=== PATIENT | female | born 1945 | race Caucasian/White ===

== ENCOUNTER 2019-04-09 14:26 | Emergency (ER) | payer MEDICARE, OTHER ==
[~2019-04-09] VITALS: Ht 172.7 cm; Wt 83.9 kg
[~2019-04-09 14:26] MED LIST: Albuterol2.5 MG/0.5 IH; Aspirin EC325 MG PO; Crutch1 EACH MISC; DILT120 PO; DOXY100 PO; METF500 PO; Naprosyn500 MG PO; Roxicodone5 MG PO; Ultram50 MG PO; VERA180ERB PO
== END 2019-04-09 15:48 | disposition home or self-care (01) ==
LOC: ER 14:26
DX: I83.812 Varicose veins of left lower extremity with pain (principal); Z88.2 Allergy status to sulfonamides; Z88.8 Allergy status to other drugs, medicaments and biological substances; Z79.899 Other long term (current) drug therapy
CPT/HCPCS: 93971; 99283-25

== ENCOUNTER → 2020-01-19 | Outpatient (CLI) | payer MEDICARE, OTHER ==
[2020-01-23 15:09] LABS: HPV 16 Negative (Negative); HPV 18 Negative (Negative); HPV OTHER HR TYPES Negative (Negative)
== END | disposition home or self-care (01) ==
LOC: LAB 13:06 → LAB SHORT 13:06
PROVIDERS: Obstetrics & Gynecology
DX: Z01.419 Encounter for gynecological examination (general) (routine) without abnormal findings (principal)
CPT/HCPCS: 87624; G0123

== ENCOUNTER 2020-03-06 07:29 | Day surgery (SDC) | payer MEDICARE, OTHER ==
[~2020-03-06] VITALS: Ht 170.2 cm; Wt 81.3 kg
[~2020-03-06 07:29] MED LIST changes: +CENTRUM SILVER1 EAC2 PO; +ESTER C PO
--- NOTE | 2020-03-06 09:14 | NUR ---
Ambulatory in Day Surgery History, Chart, Medications and Allergies reviewed before start of procedure. Lungs clear T/O to Auscultation. Pre-Op teaching done. Pt verbalizes understanding.
--- NOTE | 2020-03-06 10:53 | NUR ---
"DAY SURGERY | RADIOLOGY CALL RADIOLOGY STATES THAT THE MEDIPORT LOOKS GOOD PER DR. GIRALDO."
--- NOTE | 2020-03-06 11:23 | NUR ---
"DAY SURGERY RN | DISCHARGE VSS. A/O. DENIES NAUSEA AND PAIN AT THIS TIME. DISCHARGE INSRUCTIONS AND RX GIVEN TO PATIENT. SITES C/D/I. STEADY ON FEET. TO FRONT ENTRANCE IN WHEELCHAIR BY THIS RN. MEET IS RIDE HOME. NO ISSUES. TOLERATING PO FLUIDS AND FOOD."
== END 2020-03-06 22:51 | disposition home or self-care (01) ==
LOC: ORSCMMR 07:29 → ORD 09:15 → ORSCMMR 09:15
PROVIDERS: Surgery
PROC: B5131ZA Fluoroscopy of Right Jugular Veins using Low Osmolar Contrast, Guidance (ICD-10-PCS; principal; 2020-03-06 09:15)
PROC: 05HM33Z Insertion of Infusion Device into Right Internal Jugular Vein, Percutaneous Approach (ICD-10-PCS; principal; 2020-03-06 09:15)
DX: C50.212 Malignant neoplasm of upper-inner quadrant of left female breast (principal); I10 Essential (primary) hypertension; G47.33 Obstructive sleep apnea (adult) (pediatric); E11.9 Type 2 diabetes mellitus without complications; Z79.899 Other long term (current) drug therapy
CPT/HCPCS: 77001; 82947; A9270-GY; C1788; J0690; J1100; J1642; J2250; J2405; J2704; J3010; J7120

== ENCOUNTER 2020-10-04 21:23 | Inpatient (IN) | payer MEDICARE, OTHER ==
[~2020-10-04] VITALS: Ht 170.2 cm; Wt 82.0 kg
[~2020-10-04 21:23] MED LIST changes: +GLIP5ER PO; +Norco 5-325 Ta1 EACH PO
[2020-10-04 22:23] LABS: BASOPHILS PERCENT AUTO 1 % (0-2); EOSINOPHILS PERCENT AUTO 3 % (0-6); Hematocrit 41.7 % (33.0-51.0); Hemoglobin 14.5 g/dL (11.5-16.0); IMMATURE GRAN ABSOLUTE AUTO 0.13 K/mm3 (0.00-0.10); IMMATURE GRAN PERCENT AUTO 1 % (0-1); LYMPHOCYTES ABSOLUTE AUTO 1.27 K/mm3 (0.84-5.20); LYMPHOCYTES PERCENT AUTO 11 % (21-46); MONOCYTES ABSOLUTE AUTO 0.75 K/mm3 (0.16-1.47); MONOCYTES PERCENT AUTO 6 % (4-13); Mean Corpuscular HGB 32.4 pg (26.0-34.0); Mean Corpuscular HGB Conc 34.8 g/dL (31.5-36.5); Mean Corpuscular Volume 93 fL (80-100); Mean Platelet Volume 9.5 fL (9.1-12.4); NEUTROPHILS ABSOLUTE AUTO 9.26 K/mm3 (1.96-9.15); NEUTROPHILS PERCENT AUTO 78 % (41-73); Platelet Count 137 K/mm3 (150-400); RDW Coefficient Variation 15.8 % (11.7-14.2); Red Blood Cell Count 4.48 M/mm3 (3.80-5.20); White Blood Cell Count 11.81 K/mm3 (4.00-11.30)
[2020-10-04 22:40] LABS: Troponin I 0.035 ng/mL (0.000-0.040)
[2020-10-04 22:41] LABS: Alanine Aminotransfer (ALT/SGP 58 U/L (12-78); Albumin, Blood 4.1 g/dL (3.4-5.0); Albumin/Globulin Ratio 1.4 (0.8-1.8); Alk Phos 141 U/L (50-136); Anion Gap 8 mmol/L (6-16); Aspartate Aminotrans (AST/SGOT 40 U/L (12-37); Bilirubin, Total 0.9 mg/dL (0.1-1.0); Blood Urea Nitrogen 15 mg/dL (8-24); Bun/Creatinine Ratio 29.8 (12.0-20.0); CO2, Blood 27 mmol/L (21-32); Chloride, Blood 103 mmol/L (98-108); Glomerular Filtration Rate >60 (60-); Glucose, Blood 341 mg/dL (70-99); Potassium, Blood 3.7 mmol/L (3.5-5.5); Sodium, Blood 138 mmol/L (136-145); Total Protein, Blood 7.1 g/dL (6.4-8.2)
[2020-10-05] MEDS ORDERED: CAPE500 PO (01:35)
[2020-10-05 06:05] LABS: BASOPHILS ABSOLUTE AUTO 0.11 K/mm3 (0.00-0.23); BASOPHILS PERCENT AUTO 1 % (0-2); EOSINOPHILS ABSOLUTE AUTO 0.38 K/mm3 (0.00-0.68); EOSINOPHILS PERCENT AUTO 3 % (0-6); Hematocrit 38.2 % (33.0-51.0); Hemoglobin 12.9 g/dL (11.5-16.0); IMMATURE GRAN ABSOLUTE AUTO 0.15 K/mm3 (0.00-0.10); IMMATURE GRAN PERCENT AUTO 1 % (0-1); LYMPHOCYTES PERCENT AUTO 13 % (21-46); MONOCYTES ABSOLUTE AUTO 0.76 K/mm3 (0.16-1.47); MONOCYTES PERCENT AUTO 6 % (4-13); Mean Corpuscular HGB 31.7 pg (26.0-34.0); Mean Corpuscular HGB Conc 33.8 g/dL (31.5-36.5); Mean Corpuscular Volume 94 fL (80-100); NEUTROPHILS ABSOLUTE AUTO 9.03 K/mm3 (1.96-9.15); NEUTROPHILS PERCENT AUTO 75 % (41-73); Platelet Count 101 K/mm3 (150-400); RDW Coefficient Variation 15.8 % (11.7-14.2); RDW Standard Deviation 49.5 fL (35.1-46.3); Red Blood Cell Count 4.07 M/mm3 (3.80-5.20); White Blood Cell Count 12.03 K/mm3 (4.00-11.30)
[2020-10-05 06:37] LABS: Alanine Aminotransfer (ALT/SGP 52 U/L (12-78); Albumin, Blood 3.7 g/dL (3.4-5.0); Albumin/Globulin Ratio 1.4 (0.8-1.8); Alk Phos 127 U/L (50-136); Anion Gap 9 mmol/L (6-16); Aspartate Aminotrans (AST/SGOT 28 U/L (12-37); Bilirubin, Total 0.8 mg/dL (0.1-1.0); Blood Urea Nitrogen 13 mg/dL (8-24); Bun/Creatinine Ratio 26.5 (12.0-20.0); CO2, Blood 27 mmol/L (21-32); Calcium, Blood 8.6 mg/dL (8.5-10.1); Chloride, Blood 102 mmol/L (98-108); Creatinine, Blood 0.49 mg/dL (0.40-1.00); Globulin, Blood 2.6 g/dL (2.2-4.0); Glomerular Filtration Rate >60 (60-); Glucose, Blood 250 mg/dL (70-99); Potassium, Blood 3.3 mmol/L (3.5-5.5); Sodium, Blood 138 mmol/L (136-145); Total Protein, Blood 6.3 g/dL (6.4-8.2)
--- NOTE | 2020-10-05 06:42 | NUR ---
IV TO R AC LEAKING ON ADMIT. OLD DRESSING REMOVED, SITE CLEANED, AND DRESSING REPLACED. SITE W/SOME MINIMAL LEAKAGE WHICH IS NOT INCREASING WITH THE ADMINISTRATION OF FLUIDS.
--- NOTE | 2020-10-05 07:44 | NUR ---
SHIFT SUMMARY: THANG IS A&OX4. VSS, NO ACUTE EVENTS SINCE HER ARRIVAL TO THE FLOOR THIS MORNING. SHE REPORTS FOLLOWING A LOW CARB, HIGH HEALTHY FAT, AND MODERATE PROTEIN DIET. IVs X 2 PATENT, FLUIDS AND HEPARIN INFUSING. SHE REPORTS ADEQUATE PAIN CONTROL WITH 4 MG OF MORPHINE WHICH WAS ADMINISTERED IN THE ER. OXYGEN SATURATIONS MAINTAINING ON 2 L VIA NC. SHE IS TOLERATING PO INTAKE WELL. TELE IN PLACE WITH NSR. ORIENTED TO THE ROOM, CALL LIGHT IN REACH. REPORT GIVEN TO DAY SHIFT RN.
--- NOTE | 2020-10-05 08:00 | NUR ---
pt laying in bed awake a/ox3, pleasant and coopertive with care, follows commands well, denies pain or sob at this time, lungs are clear t/o, no cough noted, hrr, tele in place running sr per monitor, see strip, no edema but left leg is swollen and red up to thigh, she reports increased leg pain with movement, iv sites are clear and patent, btx4, abd flat soft nontender, voids wihthout diff, skin c/w/d, patricia, nico, call light in reach.
--- NOTE | 2020-10-05 17:36 | NUR ---
PT DOING OK, REPORTS THE PAIN IN HER LEG IS LESS THAN WHEN SHE CAME IN, HEPERIN WAS STOPPED AND STARTED ON XARELTO, NO ACUTE CHANGES THIS SHIFT. CALL LIGHT IN REACH.
--- NOTE | 2020-10-05 22:07 | NUR ---
ASSUMED CARE PT IS ALERT AND ORIENTED. PT VITALS ARE STABLE. PT UP TO THE BATHROOM WITH STANBY ASSIST. PAINFUL WITH MOVEMENT 02/15. PT IS ON 2L NC WITH NO REPORT OF SOB; SATS OF >95%.
[2020-10-06 04:06] LABS: BASOPHILS ABSOLUTE AUTO 0.09 K/mm3 (0.00-0.23); BASOPHILS PERCENT AUTO 1 % (0-2); EOSINOPHILS PERCENT AUTO 5 % (0-6); Hematocrit 36.8 % (33.0-51.0); Hemoglobin 12.3 g/dL (11.5-16.0); IMMATURE GRAN ABSOLUTE AUTO 0.19 K/mm3 (0.00-0.10); IMMATURE GRAN PERCENT AUTO 2 % (0-1); LYMPHOCYTES ABSOLUTE AUTO 1.63 K/mm3 (0.84-5.20); LYMPHOCYTES PERCENT AUTO 20 % (21-46); MONOCYTES PERCENT AUTO 10 % (4-13); Mean Corpuscular HGB 31.5 pg (26.0-34.0); Mean Corpuscular HGB Conc 33.4 g/dL (31.5-36.5); Mean Corpuscular Volume 94 fL (80-100); Mean Platelet Volume 9.3 fL (9.1-12.4); NEUTROPHILS ABSOLUTE AUTO 5.03 K/mm3 (1.96-9.15); NEUTROPHILS PERCENT AUTO 62 % (41-73); Platelet Count 136 K/mm3 (150-400); RDW Coefficient Variation 16.2 % (11.7-14.2); RDW Standard Deviation 50.9 fL (35.1-46.3); White Blood Cell Count 8.14 K/mm3 (4.00-11.30)
[2020-10-06 05:26] LABS: Albumin, Blood 3.4 g/dL (3.4-5.0); Anion Gap 7 mmol/L (6-16); Blood Urea Nitrogen 13 mg/dL (8-24); Bun/Creatinine Ratio 23.3 (12.0-20.0); CO2, Blood 28 mmol/L (21-32); Calcium, Blood 8.9 mg/dL (8.5-10.1); Chloride, Blood 102 mmol/L (98-108); Creatinine, Blood 0.56 mg/dL (0.40-1.00); Glomerular Filtration Rate >60 (60-); Glucose, Blood 225 mg/dL (70-99); Magnesium, Blood 1.9 mg/dL (1.6-2.4); Phosphorus, Blood 3.6 mg/dL (2.5-4.9); Potassium, Blood 3.5 mmol/L (3.5-5.5); Sodium, Blood 137 mmol/L (136-145)
--- NOTE | 2020-10-06 05:31 | NUR ---
SHIFT SUMMARY PT IS PLEASANT. ALERT AND ORIENTED. NO ACUTE CHANGES; VITALS HAVE REMAINED STABLE WITH SATS OF >92% AT 1L O2. REPORT PAIN WHEN AMBULATING TO THE BATHROOM AND BACK TO BED OF 02/15. SHE IS A STAND BY ASSIST TO THE BATHROOM. USES CALL LIGHT APPROPRIATLEY.
[2020-10-06] MEDS ORDERED: HYDR1TAB94 PO (12:23)
[2020-10-06] MEDS ORDERED: XARELTO20 MG PO (12:24)
[2020-10-06] MEDS ORDERED: XARELTO15 M1 PO (12:25)
--- NOTE | 2020-10-06 14:26 | NUR ---
DC'D TO HOME WITH HOME O2 FROM [facility]. VERBAL AND WRITTEN INSTRUCTIONS GIVEN WITH CLEAR UNDERSTANDING. RX GIVEN TO SPOUSE.
== END 2020-10-06 14:25 | disposition home or self-care (01) | DRG 175 ==
LOC: ER 21:23 → PCU 10-05 04:06 → ER 10-05 05:34 → PCU 10-05 05:46 → ENPENDDIS 10-06 11:54 → PCU 10-06 14:25
PROVIDERS: Internal Medicine Gastroenterology; Physician Assistant; ADMIT Internal Medicine
DX: I26.99 Other pulmonary embolism without acute cor pulmonale (principal); J96.01 Acute respiratory failure with hypoxia; I82.402 Acute embolism and thrombosis of unspecified deep veins of left lower extremity; I42.2 Other hypertrophic cardiomyopathy; E11.9 Type 2 diabetes mellitus without complications; C50.919 Malignant neoplasm of unspecified site of unspecified female breast; I10 Essential (primary) hypertension; E78.5 Hyperlipidemia, unspecified; M79.7 Fibromyalgia; Z92.21 Personal history of antineoplastic chemotherapy; Z90.10 Acquired absence of unspecified breast and nipple
CPT/HCPCS: 36415; 71260; 80053; 80069; 82947; 83735; 84484; 85025; 85730; 93005; 93010; 93971; 94761; 96374; 96376; 99285-25; A9270; J1644; J2270; J7030; Q9967

== ENCOUNTER 2021-11-12 07:44 | Day surgery (SDC) | payer MEDICARE, OTHER ==
[~2021-11-12] VITALS: Ht 172.7 cm; Wt 82.5 kg
[~2021-11-12 07:44] MED LIST changes: +CAPE500 PO; +HYDR1TAB94 PO; +XARELTO15 M1 PO; +XARELTO20 MG PO
--- NOTE | 2021-11-12 08:24 | NUR ---
11/12/21 0823 SAI RECINOS TETRACAINE DROP INSTILLED AT 0822 PLEDGETT INSERTED AT 0824
== END 2021-11-12 09:46 | disposition home or self-care (01) ==
LOC: ORSCSDS 07:44
PROVIDERS: Ophthalmology
PROC: 08RJ3JZ Replacement of Right Lens with Synthetic Substitute, Percutaneous Approach (ICD-10-PCS; principal; 2021-11-12 09:00)
DX: H25.13 Age-related nuclear cataract, bilateral (principal); I42.2 Other hypertrophic cardiomyopathy; I10 Essential (primary) hypertension; J45.909 Unspecified asthma, uncomplicated; K21.9 Gastro-esophageal reflux disease without esophagitis; E11.9 Type 2 diabetes mellitus without complications; Z79.899 Other long term (current) drug therapy
CPT/HCPCS: 82947; J2001; J2250; J3010; J3301; J7040; V2632

== ENCOUNTER 2021-12-03 06:42 | Day surgery (SDC) | payer MEDICARE, OTHER ==
[~2021-12-03] VITALS: Ht 172.7 cm; Wt 82.7 kg
--- NOTE | 2021-12-03 09:00 | NUR ---
12/03/21 0900 DRE DURÁN STATES OS IS SCRATCHY
== END 2021-12-03 08:45 | disposition home or self-care (01) ==
LOC: ORSCSDS 06:42
PROVIDERS: Ophthalmology
PROC: 08RK3JZ Replacement of Left Lens with Synthetic Substitute, Percutaneous Approach (ICD-10-PCS; principal; 2021-12-03 08:00)
DX: H25.12 Age-related nuclear cataract, left eye (principal); I10 Essential (primary) hypertension; J45.909 Unspecified asthma, uncomplicated; E11.9 Type 2 diabetes mellitus without complications; Z85.3 Personal history of malignant neoplasm of breast; Z79.899 Other long term (current) drug therapy
CPT/HCPCS: 82947; J2001; J2250; J3010; J3301; J7040; V2632

== ENCOUNTER 2022-08-17 21:41 | Inpatient (IN) | payer MEDICARE, OTHER ==
[~2022-08-17] VITALS: Ht 172.7 cm; Wt 80.7 kg
[2022-08-17 22:49] LABS: BASOPHILS ABSOLUTE AUTO 0.08 K/mm3 (0.00-0.23); BASOPHILS PERCENT AUTO 1 % (0-2); EOSINOPHILS ABSOLUTE AUTO 0.07 K/mm3 (0.00-0.68); EOSINOPHILS PERCENT AUTO 0 % (0-6); Hematocrit 41.9 % (33.0-51.0); Hemoglobin 14.2 g/dL (11.5-16.0); IMMATURE GRAN ABSOLUTE AUTO 0.08 K/mm3 (0.00-0.10); IMMATURE GRAN PERCENT AUTO 1 % (0-1); LYMPHOCYTES PERCENT AUTO 6 % (21-46); MONOCYTES ABSOLUTE AUTO 0.74 K/mm3 (0.16-1.47); MONOCYTES PERCENT AUTO 5 % (4-13); Mean Corpuscular HGB 31.3 pg (26.0-34.0); Mean Corpuscular HGB Conc 33.9 g/dL (31.5-36.5); Mean Corpuscular Volume 93 fL (80-100); Mean Platelet Volume 9.5 fL (9.1-12.4); NEUTROPHILS ABSOLUTE AUTO 13.86 K/mm3 (1.96-9.15); NEUTROPHILS PERCENT AUTO 88 % (41-73); Platelet Count 260 K/mm3 (150-400); RDW Standard Deviation 44.1 fL (35.1-46.3); Red Blood Cell Count 4.53 M/mm3 (3.80-5.20); White Blood Cell Count 15.83 K/mm3 (4.00-11.30)
[2022-08-17 23:08] LABS: Influenza A, PCR NEGATIVE (NEGATIVE); Influenza B, PCR NEGATIVE (NEGATIVE); SARS-Cov-2 (COVID-19) PCR, MMC NEGATIVE (NEGATIVE)
[2022-08-17 23:10] LABS: Albumin, Blood 3.6 g/dL (3.4-5.0); Albumin/Globulin Ratio 1.1 (0.8-1.8); Bun/Creatinine Ratio 16.7 (12.0-20.0); Calcium, Blood 8.7 mg/dL (8.5-10.1); Creatinine, Blood 0.54 mg/dL (0.40-1.00); Globulin, Blood 3.3 g/dL (2.2-4.0); Potassium, Blood 3.3 mmol/L (3.5-5.5); Total Protein, Blood 6.9 g/dL (6.4-8.2)
[2022-08-17 23:49] LABS: Resp Syncytial Virus, PCR POSITIVE (NEGATIVE)
--- NOTE | 2022-08-18 06:32 | NUR ---
TRANSFER NOTE/SHIFT SUMMARY ASSUMED CARE OF THE PT AT 0450 AFTER REPORT FROM MIRELLA JIMENES RN. PT IS ALERT AND ORIENTED X4, COOPERATIVE. STOOD TO TRANSFER TO BED. PT CURRENTLY ON 2L BY NC AND SATTING >92% THOUGH LUNG SOUNDS ARE WHEEZY. SHE REPORTS IMPROVEMENT IN WORK OF BREATHING. PT GIVEN PO POTASSIUM AND IV MAGNESIUM. 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 PT IS STEADY ON HER FEET AND REQUIRES MINIMAL ASSISTANCE. CALL LIGHT IN REACH. BED IN LOW POSITION.
[2022-08-18 07:10] LABS: BASOPHILS ABSOLUTE AUTO 0.02 K/mm3 (0.00-0.23); BASOPHILS PERCENT AUTO 0 % (0-2); EOSINOPHILS PERCENT AUTO 0 % (0-6); Hematocrit 38.7 % (33.0-51.0); Hemoglobin 12.9 g/dL (11.5-16.0); IMMATURE GRAN ABSOLUTE AUTO 0.07 K/mm3 (0.00-0.10); IMMATURE GRAN PERCENT AUTO 1 % (0-1); LYMPHOCYTES ABSOLUTE AUTO 0.49 K/mm3 (0.84-5.20); LYMPHOCYTES PERCENT AUTO 4 % (21-46); MONOCYTES ABSOLUTE AUTO 0.07 K/mm3 (0.16-1.47); MONOCYTES PERCENT AUTO 1 % (4-13); Mean Corpuscular HGB 31.3 pg (26.0-34.0); Mean Corpuscular HGB Conc 33.3 g/dL (31.5-36.5); Mean Corpuscular Volume 94 fL (80-100); Mean Platelet Volume 9.8 fL (9.1-12.4); NEUTROPHILS ABSOLUTE AUTO 11.85 K/mm3 (1.96-9.15); NEUTROPHILS PERCENT AUTO 95 % (41-73); Platelet Count 243 K/mm3 (150-400); RDW Coefficient Variation 13.2 % (11.7-14.2); RDW Standard Deviation 45.4 fL (35.1-46.3); Red Blood Cell Count 4.12 M/mm3 (3.80-5.20)
[2022-08-18 08:29] LABS: Bun/Creatinine Ratio 19.1 (12.0-20.0); Calcium, Blood 9.4 mg/dL (8.5-10.1); Creatinine, Blood 0.58 mg/dL (0.40-1.00); Potassium, Blood 3.9 mmol/L (3.5-5.5)
[2022-08-18 10:55] LABS: Glucose, Blood 646 mg/dL (70-99)
[2022-08-18 14:49] LABS: Glucose, Blood 540 mg/dL (70-99)
--- NOTE | 2022-08-18 17:09 | NUR ---
ASSUMED CARE OF PT AT 0700 THIS MORNING. FSBS HAVE BEEN HIGH 646 TODAY. CHECKING FSBS Q 2 HRS AND TREATING WITH HIGH SLIDING SCALE INSULIN PER DR GRAHAM'S ORDERS. FSBS HAVE COME DOWN, LAST WAS 389. DR GRAHAM NOTIFIED OF PT'S ELEVATED BLOOD PRESSURES WELL. SEE DOCUMENTED VS AND ASSESSMENT. PT STATES SHE FEELS HER BREATHING IS BETTER TODAY, O2 WEANED DOWN TO 1L WHILE SLEEPING, PT GIVEN I.S. AND EDUCATED ON HOW TO USE. PT ALERT AND ORIENTED, ABLE TO AMBULATE INDEPENDENTLY, USES CALL LIGHT FOR NEEDS. WILL CONTINUE TO MONITOR AND GIVE REPORT TO NOC SHIFT RN.
--- NOTE | 2022-08-19 03:38 | NUR ---
SHIFT SUMMARY NO OVERNIGHT EVENTS SINCE TRANSFER FROM PCU AT 2029. BLOOD SUGAR TRENDING DOWN, NOW IN THE 200'S, NOW Q 4 HOUR CHECK. PT REPORTS MILD SOB AND COUGH, REMAINS ON ROOM AIR. AMBULATING INDEPENDENTLY. DENIES ANY S/S OF DISTRESS. PT ORIENTED X4, ABLE TO MAKE NEEDS KNOWN.
[2022-08-19 06:01] LABS: Albumin, Blood 3.2 g/dL (3.4-5.0); Anion Gap 7 mmol/L (6-16); Blood Urea Nitrogen 26 mg/dL (8-24); Bun/Creatinine Ratio 40.2 (12.0-20.0); CO2, Blood 28 mmol/L (21-32); Calcium, Blood 8.7 mg/dL (8.5-10.1); Chloride, Blood 103 mmol/L (98-108); Creatinine, Blood 0.65 mg/dL (0.40-1.00); Glomerular Filtration Rate 92 (60-); Glucose, Blood 279 mg/dL (70-99); Magnesium, Blood 2.5 mg/dL (1.6-2.4); Phosphorus, Blood 2.8 mg/dL (2.5-4.9); Potassium, Blood 4.2 mmol/L (3.5-5.5); Sodium, Blood 138 mmol/L (136-145)
[2022-08-19 06:15] LABS: BASOPHILS ABSOLUTE AUTO 0.02 K/mm3 (0.00-0.23); BASOPHILS PERCENT AUTO 0 % (0-2); EOSINOPHILS ABSOLUTE AUTO 0.01 K/mm3 (0.00-0.68); EOSINOPHILS PERCENT AUTO 0 % (0-6); Hematocrit 36.2 % (33.0-51.0); Hemoglobin 11.8 g/dL (11.5-16.0); IMMATURE GRAN ABSOLUTE AUTO 0.16 K/mm3 (0.00-0.10); IMMATURE GRAN PERCENT AUTO 1 % (0-1); LYMPHOCYTES PERCENT AUTO 7 % (21-46); MONOCYTES ABSOLUTE AUTO 0.91 K/mm3 (0.16-1.47); MONOCYTES PERCENT AUTO 5 % (4-13); Mean Corpuscular HGB 30.6 pg (26.0-34.0); Mean Corpuscular HGB Conc 32.6 g/dL (31.5-36.5); Mean Corpuscular Volume 94 fL (80-100); NEUTROPHILS ABSOLUTE AUTO 17.74 K/mm3 (1.96-9.15); NEUTROPHILS PERCENT AUTO 88 % (41-73); Platelet Count 253 K/mm3 (150-400); RDW Coefficient Variation 13.5 % (11.7-14.2); RDW Standard Deviation 46.3 fL (35.1-46.3); Red Blood Cell Count 3.86 M/mm3 (3.80-5.20); White Blood Cell Count 20.14 K/mm3 (4.00-11.30)
[2022-08-19] MEDS ORDERED: AZIT250 PO (13:38)
[2022-08-19] MEDS ORDERED: GUAIFENESIN ER600 MG PO (13:39)
[2022-08-19] MEDS ORDERED: PRED20 PO (13:40)
[2022-08-19] MEDS ORDERED: INSULANPEN SC (13:40)
[2022-08-19] MEDS ORDERED: VISBIOME 112.51 EACH PO (13:41)
[2022-08-19] MEDS ORDERED: AMOCLA875 PO (13:42)
--- NOTE | 2022-08-19 13:52 | NUR ---
DISCHARGE NOTE- PT WAS GIVEN VERBAL AND WRITTEN DISCHARGE INSTRUCTIONS AND ACKNOWLEDGED UNDERSTANDING OF THEM. IV DC'D PRIOR TO EDUCATION. PHARMACIST WENT OVER CHARLIE MEDICATIONS WELL. PT HAS NO FURTHER QUESTIONS AT THIS ITME. INSTRUCTED THE PT TO CALL WHEN HER SPOUSE ARRIVES AND TRUCK CLEANER WILL ESCORT HER OUT VIA WC. NO CURRENT S&S OF DISTRESS.
--- NOTE | 2022-08-19 14:57 | NUR ---
`PT DISCHARGED THE PT VERBALIZED UNDERSTANDING OF THE DC ORDERS GIVEN BY MACHINE TOOL DRESSER CHRISTINA VALDEZ. PTS PRESCRIPTIONS FAXED TO PHARMACY OF HER CHOICE. THE PT WAS TRANSFERED VIA WHEELCHAIR TO THE FRONT TO MEET HER ACCOMPANIED BY THE YARD LABORER
== END 2022-08-19 14:00 | disposition home or self-care (01) | DRG 871 ==
LOC: ER 21:41 → PCU 08-18 01:54 → MEDS 08-18 20:26
PROVIDERS: Emergency Medicine; Family Medicine; Student in an Organized Health Care Education/Training Program; ADMIT Family Medicine
DX: A41.89 Other specified sepsis (principal); J12.1 Respiratory syncytial virus pneumonia; J96.01 Acute respiratory failure with hypoxia; J15.9 Unspecified bacterial pneumonia; I42.2 Other hypertrophic cardiomyopathy; J45.901 Unspecified asthma with (acute) exacerbation; Z20.822 Contact with and (suspected) exposure to COVID-19; I10 Essential (primary) hypertension; K21.9 Gastro-esophageal reflux disease without esophagitis; K76.0 Fatty (change of) liver, not elsewhere classified; E87.6 Hypokalemia; E11.65 Type 2 diabetes mellitus with hyperglycemia; E78.5 Hyperlipidemia, unspecified; I44.7 Left bundle-branch block, unspecified; M43.10 Spondylolisthesis, site unspecified; G47.33 Obstructive sleep apnea (adult) (pediatric); Z96.652 Presence of left artificial knee joint; Z88.2 Allergy status to sulfonamides; Z88.8 Allergy status to other drugs, medicaments and biological substances; Z85.3 Personal history of malignant neoplasm of breast; Z98.890 Other specified postprocedural states; Z86.711 Personal history of pulmonary embolism; Z79.899 Other long term (current) drug therapy
CPT/HCPCS: 0241U; 36415; 71045; 80048; 80053; 80069; 82947; 83605; 83735; 83880; 84145; 84484; 85025; 93005; 93010; 93306; 94640; 94644; 94664; 94760; 94762; A9270; J0456; J0696; J1650; J1815; J1940; J2930; J3475; J7050; J7512

== ENCOUNTER 2023-06-14 11:16 | Inpatient (IN) | payer MEDICARE, OTHER ==
[~2023-06-14] VITALS: Ht 167.6 cm; Wt 79.4 kg
[~2023-06-14 11:16] MED LIST changes: +AMOCLA875 PO; +AZIT250 PO; +FURO20 PO; +GUAIFENESIN ER600 MG PO; +INSULANPEN SC; +PRED20 PO; +VISBIOME 112.51 EACH PO
[2023-06-14 12:13] LABS: BASOPHILS PERCENT AUTO 1 % (0-2); EOSINOPHILS ABSOLUTE AUTO 0.19 K/mm3 (0.00-0.68); EOSINOPHILS PERCENT AUTO 2 % (0-6); Hematocrit 42.9 % (33.0-51.0); Hemoglobin 14.3 g/dL (11.5-16.0); IMMATURE GRAN ABSOLUTE AUTO 0.07 K/mm3 (0.00-0.10); IMMATURE GRAN PERCENT AUTO 1 % (0-1); LYMPHOCYTES ABSOLUTE AUTO 1.54 K/mm3 (0.84-5.20); LYMPHOCYTES PERCENT AUTO 13 % (21-46); MONOCYTES ABSOLUTE AUTO 0.75 K/mm3 (0.16-1.47); MONOCYTES PERCENT AUTO 6 % (4-13); Mean Corpuscular HGB 31.2 pg (26.0-34.0); Mean Corpuscular HGB Conc 33.3 g/dL (31.5-36.5); Mean Corpuscular Volume 94 fL (80-100); NEUTROPHILS ABSOLUTE AUTO 9.07 K/mm3 (1.96-9.15); NEUTROPHILS PERCENT AUTO 77 % (41-73); Platelet Count 224 K/mm3 (150-400); RDW Coefficient Variation 12.7 % (11.7-14.2); RDW Standard Deviation 43.6 fL (35.1-46.3); Red Blood Cell Count 4.59 M/mm3 (3.80-5.20); White Blood Cell Count 11.72 K/mm3 (4.00-11.30)
[2023-06-14 12:34] LABS: Albumin, Blood 3.9 g/dL (3.4-5.0); Albumin/Globulin Ratio 1.2 (0.8-1.8); Bilirubin, Total 0.4 mg/dL (0.1-1.0); Bun/Creatinine Ratio 17.6 (12.0-20.0); Calcium, Blood 9.3 mg/dL (8.5-10.1); Creatinine, Blood 0.8 mg/dL (0.40-1.00); Globulin, Blood 3.2 g/dL (2.2-4.0); Potassium, Blood 4.3 mmol/L (3.5-5.5); Total Protein, Blood 7.1 g/dL (6.4-8.2)
[2023-06-14 17:17] VITALS: BP 148/60
--- NOTE | 2023-06-14 17:24 | NUR ---
admit REPORT RECEIVD FROM ER. PT ARRIVED VIA GURNEY ACCOMPANIED BY STAFF. PT ALERT AND ABLE TO MAKE NEEDS KNOWN. CONTINUE POC.
[2023-06-14 19:31] VITALS: BP 148/70
[2023-06-15 03:16] VITALS: BP 166/69
[2023-06-15 06:44] LABS: BASOPHILS ABSOLUTE AUTO 0.06 K/mm3 (0.00-0.23); BASOPHILS PERCENT AUTO 1 % (0-2); EOSINOPHILS ABSOLUTE AUTO 0.21 K/mm3 (0.00-0.68); EOSINOPHILS PERCENT AUTO 3 % (0-6); Hematocrit 41.7 % (33.0-51.0); Hemoglobin 13.8 g/dL (11.5-16.0); IMMATURE GRAN ABSOLUTE AUTO 0.04 K/mm3 (0.00-0.10); IMMATURE GRAN PERCENT AUTO 1 % (0-1); LYMPHOCYTES PERCENT AUTO 23 % (21-46); MONOCYTES ABSOLUTE AUTO 0.47 K/mm3 (0.16-1.47); MONOCYTES PERCENT AUTO 7 % (4-13); Mean Corpuscular HGB 30.9 pg (26.0-34.0); Mean Corpuscular HGB Conc 33.1 g/dL (31.5-36.5); Mean Corpuscular Volume 94 fL (80-100); Mean Platelet Volume 9.8 fL (9.1-12.4); NEUTROPHILS ABSOLUTE AUTO 4.52 K/mm3 (1.96-9.15); NEUTROPHILS PERCENT AUTO 66 % (41-73); Platelet Count 211 K/mm3 (150-400); RDW Coefficient Variation 12.8 % (11.7-14.2); Red Blood Cell Count 4.46 M/mm3 (3.80-5.20)
[2023-06-15 07:19] VITALS: BP 163/73
[2023-06-15 07:22] LABS: Alanine Aminotransfer (ALT/SGP 33 U/L (12-78); Albumin, Blood 3.6 g/dL (3.4-5.0); Albumin/Globulin Ratio 1.2 (0.8-1.8); Alk Phos 82 U/L (50-136); Anion Gap 5 mmol/L (6-16); Aspartate Aminotrans (AST/SGOT 20 U/L (12-37); Bilirubin, Total 0.5 mg/dL (0.1-1.0); Blood Urea Nitrogen 13 mg/dL (8-24); CHOL/HDL RATIO 6.7; CO2, Blood 31 mmol/L (21-32); Calcium, Blood 8.9 mg/dL (8.5-10.1); Chloride, Blood 108 mmol/L (98-108); Cholesterol 249 mg/dL (50-200); Creatinine, Blood 0.72 mg/dL (0.40-1.00); Globulin, Blood 2.9 g/dL (2.2-4.0); Glomerular Filtration Rate 87 (60-); Glucose, Blood 173 mg/dL (70-99); HDL Cholesterol 37 mg/dL (>39); LDL/HDL RATIO 4.2; Low Density Lipoprotein Chol 155 mg/dL (0-110); Potassium, Blood 3.5 mmol/L (3.5-5.5); Sodium, Blood 144 mmol/L (136-145); Total Protein, Blood 6.5 g/dL (6.4-8.2); Triglycerides 285 mg/dL (30-160); Very Low Density Lipoprot Chol 57 mg/dL (6-32)
[2023-06-15 15:29] VITALS: BP 145/62
--- NOTE | 2023-06-15 16:34 | NUR ---
NOTE PT ALERT, OREINTED. SPEACH CONTINUES TO BE THICK. SHE IS TALKING LESS BUT MORE DELIBERATLEY. SHEIS HAVING WORD FINDING DIFFICULTIES AT TIMES. FAMILY AT BEDISE. SHE IS AGREEABLE TBE UP FOR MEALS IN THE CHAIR AT BEDSIDE. EATING WELL. NO COUGHING OR CLEARING HER THROAT NOTICED, EATING IS UNDER SUPERVISION. TAKES CUES FOR SAFETY WELL. DENIED PAIN OR DIZZINEAA. AMBULATING INTO BATHROOM WITH SBA FWW. RIGHT LEG WILL BUCKLE IF SHE STANDS FOR LONG. HOB 30 DEGREES FOR ASPIRATION PRECAUTIONS. BED LOW LOCKED WITH BED ALARM ON FOR FALL SAFETY. CARE ON GOING.
[2023-06-15 19:19] VITALS: BP 141/68
[2023-06-16 02:47] VITALS: BP 136/59
--- NOTE | 2023-06-16 05:28 | NUR ---
SHIFT SUMMARY PT IS A&O4, UP WITH ONE TO THE BR, RA, VSS, SPEECH STILL MILDLY APHASIC ALTHOUGH APPEARS TO BE DOING BETTER, MILD RIGHT SIDED WEAKNESS WITH FACIAL DROOP, NO COMPLAINTS OF PAIN OR DISCOMFORT OVERNIGHT, NO ACUTE EVENTS, CONTINUE POC
[2023-06-16 07:17] VITALS: BP 148/66
[2023-06-16 07:34] LABS: BASOPHILS ABSOLUTE AUTO 0.05 K/mm3 (0.00-0.23); BASOPHILS PERCENT AUTO 1 % (0-2); EOSINOPHILS PERCENT AUTO 3 % (0-6); Hematocrit 39.6 % (33.0-51.0); Hemoglobin 13.1 g/dL (11.5-16.0); IMMATURE GRAN ABSOLUTE AUTO 0.03 K/mm3 (0.00-0.10); IMMATURE GRAN PERCENT AUTO 0 % (0-1); LYMPHOCYTES ABSOLUTE AUTO 1.48 K/mm3 (0.84-5.20); LYMPHOCYTES PERCENT AUTO 22 % (21-46); MONOCYTES ABSOLUTE AUTO 0.51 K/mm3 (0.16-1.47); MONOCYTES PERCENT AUTO 8 % (4-13); Mean Corpuscular HGB 30.6 pg (26.0-34.0); Mean Corpuscular HGB Conc 33.1 g/dL (31.5-36.5); Mean Corpuscular Volume 93 fL (80-100); Mean Platelet Volume 9.6 fL (9.1-12.4); NEUTROPHILS PERCENT AUTO 66 % (41-73); Platelet Count 197 K/mm3 (150-400); RDW Coefficient Variation 12.7 % (11.7-14.2); RDW Standard Deviation 43.3 fL (35.1-46.3); Red Blood Cell Count 4.28 M/mm3 (3.80-5.20); White Blood Cell Count 6.67 K/mm3 (4.00-11.30)
[2023-06-16 08:00] LABS: Bun/Creatinine Ratio 16.7 (12.0-20.0); Calcium, Blood 8.9 mg/dL (8.5-10.1); Creatinine, Blood 0.72 mg/dL (0.40-1.00); Potassium, Blood 3.6 mmol/L (3.5-5.5)
[2023-06-16 15:18] VITALS: BP 134/63
--- NOTE | 2023-06-16 16:45 | NUR ---
SHIFT SUMMARY A&O X 4, VSS. IS PLEASANT & COOPERATIVE WITH ALL CARE. USES A WALKER FOR RESTROOM USE WITH STDBY ASSIST. SPEECH HAS CLEARED UP. FACIAL DROOP IS GONE. THERE IS MINIMAL R SIDED WEAKNESS OF EXTREMITIES. PT HAS PARTICIPATED WITH ALL THERAPIES, OT, PT & ST. BARIUM SWALLOW STUDY DONE. REPORT ON CHART. PLAN IS LIKELY HOME WITH OUT PT REHAB. PT HAS GOOD FAMILY SUPPORT.
[2023-06-16 19:09] VITALS: BP 142/64
[2023-06-17 02:36] VITALS: BP 148/62
--- NOTE | 2023-06-17 05:44 | NUR ---
UNEVENTFUL EVENING PT A/O VSS, NEURO INTACT WITH SMALL FACIAL DROOP. PT AMBULATORY WITH MINIMAL ASSIST, SHOWS NO SIGN OF WEAKNESS TO EXTREMITIES CALLS APPROPRIATLY, CALL LIGHT WITH IN REACH AND BED ALARM ACTIVE.
[2023-06-17 07:08] VITALS: BP 146/63
[2023-06-17 10:31] LABS: BASOPHILS ABSOLUTE AUTO 0.08 K/mm3 (0.00-0.23); BASOPHILS PERCENT AUTO 1 % (0-2); EOSINOPHILS ABSOLUTE AUTO 0.25 K/mm3 (0.00-0.68); EOSINOPHILS PERCENT AUTO 3 % (0-6); Hematocrit 42.7 % (33.0-51.0); Hemoglobin 14.3 g/dL (11.5-16.0); IMMATURE GRAN ABSOLUTE AUTO 0.03 K/mm3 (0.00-0.10); IMMATURE GRAN PERCENT AUTO 0 % (0-1); LYMPHOCYTES ABSOLUTE AUTO 1.51 K/mm3 (0.84-5.20); LYMPHOCYTES PERCENT AUTO 20 % (21-46); MONOCYTES ABSOLUTE AUTO 0.45 K/mm3 (0.16-1.47); MONOCYTES PERCENT AUTO 6 % (4-13); Mean Corpuscular HGB 31.3 pg (26.0-34.0); Mean Corpuscular HGB Conc 33.5 g/dL (31.5-36.5); Mean Corpuscular Volume 93 fL (80-100); NEUTROPHILS ABSOLUTE AUTO 5.35 K/mm3 (1.96-9.15); NEUTROPHILS PERCENT AUTO 70 % (41-73); Platelet Count 252 K/mm3 (150-400); RDW Coefficient Variation 12.6 % (11.7-14.2); RDW Standard Deviation 43.1 fL (35.1-46.3); Red Blood Cell Count 4.57 M/mm3 (3.80-5.20); White Blood Cell Count 7.67 K/mm3 (4.00-11.30)
[2023-06-17 10:52] LABS: Bun/Creatinine Ratio 14.2 (12.0-20.0); Calcium, Blood 9.1 mg/dL (8.5-10.1); Creatinine, Blood 0.77 mg/dL (0.40-1.00)
[2023-06-17] MEDS ORDERED: ASPI81CH PO (12:29)
[2023-06-17] MEDS ORDERED: ATOR40TA PO (12:30)
--- NOTE | 2023-06-17 14:49 | NUR ---
PATIENT DISCHARGED TO HOME. WILL FOLLOW UP WITH [facility] PROVIDER ON 15 AT11:40. PAITENT AND SPOUSE VERBALIZED UNDERSTANDING.
== END 2023-06-17 12:45 | disposition home or self-care (01) | DRG 65 ==
LOC: ER 11:16 → ERHOLD 15:02 → MEDS 17:04
PROVIDERS: Physician Assistant; ADMIT Internal Medicine
DX: I63.9 Cerebral infarction, unspecified (principal); E87.1 Hypo-osmolality and hyponatremia; I42.2 Other hypertrophic cardiomyopathy; G81.91 Hemiplegia, unspecified affecting right dominant side; I50.32 Chronic diastolic (congestive) heart failure; E11.65 Type 2 diabetes mellitus with hyperglycemia; I11.0 Hypertensive heart disease with heart failure; G47.30 Sleep apnea, unspecified; J45.909 Unspecified asthma, uncomplicated; R29.810 Facial weakness; Z79.4 Long term (current) use of insulin; Z79.899 Other long term (current) drug therapy; Z88.2 Allergy status to sulfonamides; Z88.8 Allergy status to other drugs, medicaments and biological substances; K21.9 Gastro-esophageal reflux disease without esophagitis; M17.9 Osteoarthritis of knee, unspecified; M43.10 Spondylolisthesis, site unspecified; K76.0 Fatty (change of) liver, not elsewhere classified; Z90.89 Acquired absence of other organs; Z90.49 Acquired absence of other specified parts of digestive tract; Z98.890 Other specified postprocedural states; Z96.652 Presence of left artificial knee joint; Z86.711 Personal history of pulmonary embolism; Z85.3 Personal history of malignant neoplasm of breast
CPT/HCPCS: 36415; 70450; 70496; 70498; 70551; 74230; 80048; 80053; 80061; 82947; 83036; 84484; 85025; 92610; 92611; 93005; 93010; 93306; 97110; 97112; 97116; 97161; 97166; 97535; 99285-25; A9270; J1650; J1815; Q9967

== ENCOUNTER 2024-06-13 12:45 | Emergency (ER) | payer MEDICARE, OTHER ==
[~2024-06-13] VITALS: Ht 170.2 cm; Wt 82.5 kg
[~2024-06-13 12:45] MED LIST changes: +ASPI81CH PO; +ATOR40TA PO
[2024-06-13 14:37] LABS: BASOPHILS PERCENT AUTO 1 % (0-2); EOSINOPHILS ABSOLUTE AUTO 0.14 K/mm3 (0.00-0.68); EOSINOPHILS PERCENT AUTO 1 % (0-6); Hematocrit 44.5 % (33.0-51.0); Hemoglobin 14.9 g/dL (11.5-16.0); IMMATURE GRAN ABSOLUTE AUTO 0.04 K/mm3 (0.00-0.10); IMMATURE GRAN PERCENT AUTO 0 % (0-1); LYMPHOCYTES ABSOLUTE AUTO 1.53 K/mm3 (0.84-5.20); LYMPHOCYTES PERCENT AUTO 15 % (21-46); MONOCYTES ABSOLUTE AUTO 0.61 K/mm3 (0.16-1.47); MONOCYTES PERCENT AUTO 6 % (4-13); Mean Corpuscular HGB 31.1 pg (26.0-34.0); Mean Corpuscular HGB Conc 33.5 g/dL (31.5-36.5); Mean Corpuscular Volume 93 fL (80-100); Mean Platelet Volume 10.1 fL (9.1-12.4); NEUTROPHILS ABSOLUTE AUTO 7.51 K/mm3 (1.96-9.15); NEUTROPHILS PERCENT AUTO 76 % (41-73); Platelet Count 226 K/mm3 (150-400); RDW Coefficient Variation 12.7 % (11.7-14.2); RDW Standard Deviation 43.4 fL (35.1-46.3); Red Blood Cell Count 4.79 M/mm3 (3.80-5.20); White Blood Cell Count 9.93 K/mm3 (4.00-11.30)
[2024-06-13 14:46] LABS: Albumin/Globulin Ratio 1.2 (0.8-1.8); Bilirubin, Total 0.6 mg/dL (0.1-1.0); Bun/Creatinine Ratio 16.3 (12.0-20.0); Calcium, Blood 9.5 mg/dL (8.5-10.1); Creatinine, Blood 0.74 mg/dL (0.40-1.00); Globulin, Blood 3.4 g/dL (2.2-4.0); Potassium, Blood 3.7 mmol/L (3.5-5.5); Total Protein, Blood 7.4 g/dL (6.4-8.2)
[2024-06-13 15:00] VITALS: BP 140/83
== END 2024-06-13 15:43 | disposition home or self-care (01) ==
LOC: ER 12:45
PROVIDERS: Physician Assistant
DX: G45.9 Transient cerebral ischemic attack, unspecified (principal); E78.5 Hyperlipidemia, unspecified; I10 Essential (primary) hypertension; K21.9 Gastro-esophageal reflux disease without esophagitis; M19.90 Unspecified osteoarthritis, unspecified site; E11.9 Type 2 diabetes mellitus without complications; G47.30 Sleep apnea, unspecified; Z79.82 Long term (current) use of aspirin; Z79.4 Long term (current) use of insulin; Z79.899 Other long term (current) drug therapy; Z88.2 Allergy status to sulfonamides; Z88.8 Allergy status to other drugs, medicaments and biological substances
CPT/HCPCS: 70450; 80053; 85025; 93005; 93010

== ENCOUNTER 2024-06-15 10:26 | Inpatient (IN) | payer MEDICARE, OTHER ==
[~2024-06-15] VITALS: Ht 170.2 cm; Wt 83.5 kg
[2024-06-15 11:41] LABS: BASOPHILS ABSOLUTE AUTO 0.07 K/mm3 (0.00-0.23); BASOPHILS PERCENT AUTO 1 % (0-2); EOSINOPHILS ABSOLUTE AUTO 0.09 K/mm3 (0.00-0.68); EOSINOPHILS PERCENT AUTO 1 % (0-6); Hematocrit 42.8 % (33.0-51.0); Hemoglobin 14.4 g/dL (11.5-16.0); IMMATURE GRAN ABSOLUTE AUTO 0.03 K/mm3 (0.00-0.10); IMMATURE GRAN PERCENT AUTO 0 % (0-1); LYMPHOCYTES PERCENT AUTO 18 % (21-46); MONOCYTES ABSOLUTE AUTO 0.46 K/mm3 (0.16-1.47); MONOCYTES PERCENT AUTO 6 % (4-13); Mean Corpuscular HGB 31.4 pg (26.0-34.0); Mean Corpuscular HGB Conc 33.6 g/dL (31.5-36.5); Mean Corpuscular Volume 93 fL (80-100); Mean Platelet Volume 9.5 fL (9.1-12.4); NEUTROPHILS PERCENT AUTO 74 % (41-73); Platelet Count 203 K/mm3 (150-400); RDW Coefficient Variation 12.7 % (11.7-14.2); RDW Standard Deviation 43.8 fL (35.1-46.3); Red Blood Cell Count 4.58 M/mm3 (3.80-5.20); White Blood Cell Count 8.15 K/mm3 (4.00-11.30)
[2024-06-15 12:11] LABS: Albumin, Blood 3.7 g/dL (3.4-5.0); Albumin/Globulin Ratio 1.1 (0.8-1.8); Bilirubin, Total 0.7 mg/dL (0.1-1.0); Bun/Creatinine Ratio 15.8 (12.0-20.0); Calcium, Blood 9.3 mg/dL (8.5-10.1); Creatinine, Blood 0.76 mg/dL (0.40-1.00); Globulin, Blood 3.3 g/dL (2.2-4.0); Potassium, Blood 3.8 mmol/L (3.5-5.5)
[2024-06-15 13:51] LABS: Source, Urine Clean Catch
[2024-06-15] MEDS ORDERED: Clopidogrel Bisulfate 75 MG Tab PO ONE (13:55)
[2024-06-15] MEDS ORDERED: Aspirin 325 MG Tab PO ONE (13:55)
[2024-06-15 14:34] LABS: Appearance, Urine Clear (Clear); Bilirubin, Urine Neg (Neg); Blood, Urine Neg (Neg); Color, Urine Yellow (P-Yellow); Glucose Qualitative, Urine Neg (Neg); Ketones, Urine Neg (Neg); Leukocyte Esterase, Urine 1+ (Neg); Nitrite, Urine Neg (Neg); Protein, Urine Neg (Neg); Urobilinogen, Urine NORM (Normal)
[2024-06-15] MEDS ORDERED: VERA180ERB PO (14:53)
[2024-06-15 14:55] LABS: Bacteria Many /hpf; Red Blood Cells, Urine 0-2 /hpf (0-2); Squamous Epithelial Cells Few /hpf (Few)
[2024-06-15] MEDS ORDERED: FLU VACC TS2024-25(6MOS UP)/PF 45 MCG/0.5 ML SYRINGE IM SCH (15:40)
[2024-06-15 16:40] VITALS: BP 188/92
[2024-06-15] MEDS ORDERED: Atorvastatin 40 MG Tab PO SCH (17:00)
--- NOTE | 2024-06-15 18:59 | NUR ---
SHIFT SUMMARY REPORT RECIEVED FROM ZAC IN ER. PT ARRIVED TO PCU VIA WHEELCAHIR AT 1635. PT PIVOT TRANSFERED FROM WHEELCHAIR TO BED. ALERT, ORIENTED TO SELF, PLACE, AND BIRTHDAY, WHEN ASKED ABOUT THE YEAR PT STATES "2013." SHE GETS MIXED UP AT TIMES. PER PT HER "HEAD IS GETTING WORSE" WHN ASKED MENTATION QUESTIONS. HR IN THE 80'S, SINUS RHYTHM, DENIES CP/PRESSURE, SBP ELEVATED, MEDICATED PER EMAR. PT HAD ST ELEVATION NOTD ON TELE. EKG COMPLETED, AWARE, TROPONON ORDERED. NUMB/TINGLING OF RIGHT ARMS AND LEGS, WEAKNESS IN RIGHT EXTREMITIIES, PT ABLE TO PUSH AGIANST MY HAND WITH BILAT HANDS AND FEET. SHE IS ABLE TO AMBULATE WITH WALKER. O2 >92% ON RA. PT ABLE TO TOLERATE PO MEDS WITH WATER. IF PT PASSES BEDSIDE SWALLOW REPORT DIET CAN BE ORDERED. PT TO COMPLETE MRI. WILL REPORT TO RAIL WASHER RN.
[2024-06-15 19:42] VITALS: BP 159/86
[2024-06-15] MEDS ORDERED: Insulin Human Lispro 100 Units/ML 3ML Syringe SC SCH (21:00)
[2024-06-16] MEDS ORDERED: Lactated Ringer's 1,000 ML IV SCH (00:10)
[2024-06-16 01:14] VITALS: BP 138/59
[2024-06-16 02:40] LABS: BASOPHILS ABSOLUTE AUTO 0.08 K/mm3 (0.00-0.23); BASOPHILS PERCENT AUTO 1 % (0-2); EOSINOPHILS ABSOLUTE AUTO 0.17 K/mm3 (0.00-0.68); EOSINOPHILS PERCENT AUTO 2 % (0-6); Hematocrit 40.6 % (33.0-51.0); Hemoglobin 13.8 g/dL (11.5-16.0); IMMATURE GRAN ABSOLUTE AUTO 0.03 K/mm3 (0.00-0.10); IMMATURE GRAN PERCENT AUTO 0 % (0-1); LYMPHOCYTES PERCENT AUTO 22 % (21-46); MONOCYTES ABSOLUTE AUTO 0.66 K/mm3 (0.16-1.47); MONOCYTES PERCENT AUTO 7 % (4-13); Mean Corpuscular HGB 30.8 pg (26.0-34.0); Mean Corpuscular Volume 91 fL (80-100); Mean Platelet Volume 9.9 fL (9.1-12.4); NEUTROPHILS ABSOLUTE AUTO 6.04 K/mm3 (1.96-9.15); NEUTROPHILS PERCENT AUTO 67 % (41-73); Platelet Count 197 K/mm3 (150-400); RDW Coefficient Variation 12.6 % (11.7-14.2); RDW Standard Deviation 41.9 fL (35.1-46.3); Red Blood Cell Count 4.48 M/mm3 (3.80-5.20); White Blood Cell Count 8.98 K/mm3 (4.00-11.30)
[2024-06-16 03:07] LABS: Anion Gap 11 mmol/L (3-11); Blood Urea Nitrogen 12 mg/dL (8-24); Bun/Creatinine Ratio 16.5 (12.0-20.0); CHOL/HDL RATIO 7.1; CO2, Blood 27 mmol/L (21-32); Calcium, Blood 9.3 mg/dL (8.5-10.1); Chloride, Blood 105 mmol/L (98-108); Cholesterol 293 mg/dL (50-200); Creatinine, Blood 0.73 mg/dL (0.40-1.00); Glomerular Filtration Rate 85 (60-); Glucose, Blood 174 mg/dL (70-99); HDL Cholesterol 41 mg/dL (>39); Low Density Lipoprotein Chol 203 mg/dL (0-110); Potassium, Blood 3.3 mmol/L (3.5-5.5); Sodium, Blood 140 mmol/L (136-145); Triglycerides 245 mg/dL (30-160); Very Low Density Lipoprot Chol 49 mg/dL (6-32)
--- NOTE | 2024-06-16 06:47 | NUR ---
EOS: NO CHANGE IN NEUROLOGICAL OR MOBILITY OVERNIGHT. UP MULTIPLE TIMES TO BATHROOM WITH WALKER AND ONE PERSON ASSIST. AO 3-4, ROOM AIR. ON MORNING ASSESSMENT, PT C/O GENERALIZED PAIN ALL OVER. STATED "IT'S EVERYWHERE THEY PUT THE MEDS. DID THEY DO SOMETHING TO THE BONES?" WE TALKED I LOOKED HER OVER HEAD TO TOE, UNABLE TO SPECIFY ANY BETTER BUT DID CALM DOWN A BIT.
[2024-06-16 07:30] VITALS: BP 179/76
[2024-06-16] MEDS ORDERED: Clopidogrel Bisulfate 75 MG Tab PO SCH (09:00)
[2024-06-16] MEDS ORDERED: Enoxaparin 40 MG/0.4 ML SYR SC SCH (09:00)
[2024-06-16] MEDS ORDERED: Aspirin 81 MG Chew PO SCH (09:00)
--- NOTE | 2024-06-16 15:13 | NUR ---
TRANSFER PT ARRIVED 1507 TO ROOM 340 FROM U 12, A&OX4, COOPERATIVE, ABLE TO MAKE NEEDS KNOWN. SKIN CHECK PERFORMED BY THIS RN AND LEANNE RN, RIGHT ELBOW WOUND NOTED, MINOR EXCORIATION ON BILATERAL HEELS. BELONGINGS WERE BROUGHT TO ROOM BY [facility] OF U BY WHEELCHAIR.
[2024-06-16 15:14] VITALS: BP 176/84
[2024-06-16 15:55] VITALS: BP 154/92
[2024-06-16] MEDS ORDERED: Potassium Chloride 20 MEQ TabCR PO ONE (16:00)
--- NOTE | 2024-06-16 17:53 | NUR ---
SHIFT SUMMARY PT A&OX4, COOPERATIVE, ABLE TO MAKE NEEDS KNOWN. PT TRANSFERS TO BATHROOM USING 1 PERSON ASSIST WITH FWW, RIGHT LEG WEAK FROM CVA. TELE NOTIFIED NURSE OF LEADS OFF AND ST ELEVATION. PT DENIED CHEST PAIN/SOB. REQUESTIONS EKG, EKG RECIEVED, NO ST ELEVATION NOTED. EKG READ LEFT BUNDLE BRANCH BLOCK, CLARIFIED WITH TELE, TELE CONFIRMED. BED IN LOWEST POSITION, CALL LIGHT WITHIN REACH.
--- NOTE | 2024-06-16 18:08 | NUR ---
COLLECTION ANALYST CALLED REPORTING ST ELEVATION ALARMS ON PATIENT; BUT ALSO STATED THAT LEADS WERE OFF. EKG OBTAINED; PT DENIES SHORTNESS OF BREATH, CHEST PAIN, RADIATING PAIN, OR NUMBNESS OF TINLING. NO SIGNS OR SYMPTOMS OF DISTRESS WITH PATIENT; SHE IS A&OX4. EKG DID NOT SHOW ST ELEVATION FINDINGS. CALL MADE TO DR. CASTANEDA TO NOTIFY HIM DUE TO BEING AFTER [address] RIVAS. DID GIVE DR. CASTANEDA AN UPDATE ON PATIENT/HISTORY AND THAT SHE HAS HAD ELEVATED TROPONINS, BUT ARE TRENDING DOWN. NO NEW ORDERS FROM DR. CASTANEDA. ST ELEVATED RESOLVED ON TELE.
[2024-06-16 19:18] VITALS: BP 151/74
[2024-06-16] MEDS ORDERED: Verapamil HCL 180 MG TABCR PO SCH (21:00)
[2024-06-16] MEDS ORDERED: HYDROcodone 5-APAP 325 TAB PO PRN (23:55)
[2024-06-17 02:05] VITALS: BP 148/68
[2024-06-17 07:10] LABS: BASOPHILS ABSOLUTE AUTO 0.08 K/mm3 (0.00-0.23); BASOPHILS PERCENT AUTO 1 % (0-2); EOSINOPHILS PERCENT AUTO 3 % (0-6); Hematocrit 39.6 % (33.0-51.0); Hemoglobin 13.3 g/dL (11.5-16.0); IMMATURE GRAN ABSOLUTE AUTO 0.04 K/mm3 (0.00-0.10); IMMATURE GRAN PERCENT AUTO 1 % (0-1); LYMPHOCYTES ABSOLUTE AUTO 1.89 K/mm3 (0.84-5.20); LYMPHOCYTES PERCENT AUTO 29 % (21-46); MONOCYTES PERCENT AUTO 9 % (4-13); Mean Corpuscular HGB 31.3 pg (26.0-34.0); Mean Corpuscular HGB Conc 33.6 g/dL (31.5-36.5); Mean Corpuscular Volume 93 fL (80-100); Mean Platelet Volume 9.9 fL (9.1-12.4); NEUTROPHILS ABSOLUTE AUTO 3.66 K/mm3 (1.96-9.15); NEUTROPHILS PERCENT AUTO 57 % (41-73); Platelet Count 169 K/mm3 (150-400); RDW Coefficient Variation 12.8 % (11.7-14.2); RDW Standard Deviation 43.7 fL (35.1-46.3); Red Blood Cell Count 4.25 M/mm3 (3.80-5.20); White Blood Cell Count 6.47 K/mm3 (4.00-11.30)
--- NOTE | 2024-06-17 07:21 | NUR ---
SHIFT SUMMARY PT A&Ox4 AND PLEASANT. SOME MILD VISION DEFICITS R/T PROPROCEPTION OBSERVED, AND SOME RIGHT SIDED WEAKNESS. PT C/O PAIN IN BACK AND HIPS D/T BED. MEDICATED PER EMAR WITH GOOD EFFECT. CONTINUING LR @ 125ML/HR. NO EVENTS ON TELE. VSS. BED ALARM ON. BED IN LOWEST POSITION AND CALL LIGHT IN REACH.
[2024-06-17 07:30] VITALS: BP 146/70
[2024-06-17 07:40] LABS: Bun/Creatinine Ratio 16.7 (12.0-20.0); Calcium, Blood 8.8 mg/dL (8.5-10.1); Creatinine, Blood 0.72 mg/dL (0.40-1.00); Potassium, Blood 4.1 mmol/L (3.5-5.5)
[2024-06-17 13:23] VITALS: BP 112/60
[2024-06-17 13:35] VITALS: BP 112/60
--- NOTE | 2024-06-17 13:44 | NUR ---
PT WITH ASSISTED FALL TO GROUND. PT DENIES PAIN. NO CHANGE IN MENTATION POST FALL. PT 3 PAERSON ASSIST TO RETURN TO CHAIR. DR RIVAS NOTIFIED. NO NEW ORDERS
[2024-06-17] MEDS ORDERED: Lisinopril 5 MG Tab PO SCH (14:00)
[2024-06-17 15:29] VITALS: BP 131/74
--- NOTE | 2024-06-17 18:29 | NUR ---
SHIFT SUMMARY PATIENT PRESENTS WITH RIGHT SIDED DEFICITS, MILD R FACIAL DROOP, R ARM WEAKNESS AND DECREASED FINE MOTOR, R LEG WEAKNESS WITH FOOT DRAGGING AT TIMES WHEN AMBULATING. DEFICITS BECAME MORE PRONOUNCED THE SHIFT CONTINUED. C/O R HIP AND KNEE PAIN POST ASSISTED FALL WITH BREAK NURSE. DR BENZ MADE AWARE, IMAGING PERFORMED, OKAYED FOR ICE AND HEAT TO BE APPLIED, NORCO GIVEN WITH GOOD RELIEF. PATIENT SEEMS MORE STEADY WITH FWW RATHER THAN 4 WHEELED WALKER, STATED SHE FEELS BETTER WITH THE FWW. ABLE TO MAKE NEEDS KNOWN. CALL LIGHT IN REACH. CARES ONGOING.
[2024-06-17 19:45] VITALS: BP 125/69
[2024-06-18 04:02] VITALS: BP 129/64
[2024-06-18 06:17] LABS: BASOPHILS ABSOLUTE AUTO 0.08 K/mm3 (0.00-0.23); BASOPHILS PERCENT AUTO 1 % (0-2); EOSINOPHILS ABSOLUTE AUTO 0.21 K/mm3 (0.00-0.68); EOSINOPHILS PERCENT AUTO 3 % (0-6); Hematocrit 36.9 % (33.0-51.0); Hemoglobin 12.3 g/dL (11.5-16.0); IMMATURE GRAN ABSOLUTE AUTO 0.03 K/mm3 (0.00-0.10); IMMATURE GRAN PERCENT AUTO 0 % (0-1); LYMPHOCYTES ABSOLUTE AUTO 1.73 K/mm3 (0.84-5.20); LYMPHOCYTES PERCENT AUTO 21 % (21-46); MONOCYTES ABSOLUTE AUTO 0.61 K/mm3 (0.16-1.47); MONOCYTES PERCENT AUTO 7 % (4-13); Mean Corpuscular HGB 31.5 pg (26.0-34.0); Mean Corpuscular HGB Conc 33.3 g/dL (31.5-36.5); Mean Corpuscular Volume 95 fL (80-100); Mean Platelet Volume 9.8 fL (9.1-12.4); NEUTROPHILS ABSOLUTE AUTO 5.55 K/mm3 (1.96-9.15); NEUTROPHILS PERCENT AUTO 68 % (41-73); Platelet Count 173 K/mm3 (150-400); RDW Coefficient Variation 12.8 % (11.7-14.2); RDW Standard Deviation 44.2 fL (35.1-46.3); White Blood Cell Count 8.21 K/mm3 (4.00-11.30)
[2024-06-18 06:43] LABS: Bun/Creatinine Ratio 17.9 (12.0-20.0); Creatinine, Blood 0.73 mg/dL (0.40-1.00); Potassium, Blood 3.9 mmol/L (3.5-5.5)
--- NOTE | 2024-06-18 07:16 | NUR ---
SHIFT SUMMARY PT A&Ox3 AND PLEASANT. RIGHT SIDE WEEKNESS SLIGHTLY MORE PRONOUNCED AT START OF SHIFT. PT MEDICATED FOR BACK AND HEAD PAIN ONCE DURING THE NIGHT WITH GOOD EFFECT. CONTINUING LR @ 125ML/HR. NO EVENTS ON TELE. BED ALARM ON DURING THE NIGHT BED IN LOWEST POSITION AND CALL LIGHT IN REACH.
[2024-06-18 07:41] VITALS: BP 149/72
[2024-06-18 16:16] VITALS: BP 127/64
[2024-06-18 16:29] VITALS: BP 116/60
--- NOTE | 2024-06-18 16:29 | NUR ---
TELE CALL TELEMETRY ALERTED THIS RN TO RYTHYM CHANGES. NOTIFIED DR BENZ. ADVISED TO MONITOR. SECOND OCCURANCE, DR BENZ NOTIFIED AGAIN. PATIENT STATING SHE FEELS "SOMETHING IN HER CHEST, MAYBE IT'S BEATING FAST", DENIES CHEST PAIN/PRESSURE. DR BENZ ADIVSED LABS WHICH WERE PLACED STAT. PATIENT A/O X4 SITTING IN CHAIR TALKING WITH AT THIS TIME.
[2024-06-18 17:04] LABS: Bun/Creatinine Ratio 18.7 (12.0-20.0); Calcium, Blood 9.5 mg/dL (8.5-10.1); Creatinine, Blood 0.8 mg/dL (0.40-1.00); Magnesium, Blood 1.8 mg/dL (1.6-2.4); Phosphorus, Blood 4.5 mg/dL (2.5-4.9); Potassium, Blood 4.1 mmol/L (3.5-5.5)
--- NOTE | 2024-06-18 17:45 | NUR ---
SHIFT SUMMARY RIGHT SIDED DEFICITS SAME PREVIOUS SHIFT, MORE PRONOUNCED LATER IN SHIFT. SPEECH MORE MUMBLED AND INAPPROPRIATE WORDS PLACED IN SENTENCE LATER IN SHIFT. A COUPLE TELEMETRY CALLS, SEE OTHER NOTE. A/O X 3-4. CALL LIGHT IN REACH, ABLE TO MAKE NEEDS KNOWN. VSS. CARES ONGOING.
[2024-06-18 19:20] VITALS: BP 137/59
--- NOTE | 2024-06-19 02:33 | NUR ---
T- ORDER RECEIVED FROM THE ON-CALL HOSPITALIST : -D/C LACTATED RINGERS @125MLS/HR INFUSION. ENTERED TO [employer]. SEE EMAR. NO ADDITIONAL NEW ORDERS AT THIS TIME.
--- NOTE | 2024-06-19 03:30 | NUR ---
SHIFT SUMMARY TELE: @HS SR @81 WITH 1ST DEGREE HB. @0340: V-TACH FOR 9BEATS. @0345 SR @62 WITH BB. NO ACUTE DISTRESS NOTED, PT DENIES DISCOMFORT. PT IS A&O X3-4, SLIGHTLY SLURRED SPEECH, RIGHT SIDED WEAKNESS NOTED UE/LE. PERRLA. PT MEDICATED FOR BACKPAIN, PT REPORTS D/T RECENT ASSISTED FALL. PRN NORCO EFFECTIVE WITH A HEATING PAD ON THE LOWER BACK. HS B. PT HAS A GOOD PO INTAKE PER PREVIOUS SHIFT RN. NO ACUTE EVENTS/DISTRESS NOTED/REPORTED DURING THIS SHIFT. BED AT THE LOWEST POSITION, CALL LIGHT W/I REACH. PT IS ABLE TO MAKE HER NEEDS KNOWN, CALLS APPROPRIATELY, AND IS COOPERATIVE WITH CARE. HS B. TELE:
[2024-06-19 03:55] VITALS: BP 130/63
[2024-06-19 05:06] LABS: BASOPHILS ABSOLUTE AUTO 0.07 K/mm3 (0.00-0.23); BASOPHILS PERCENT AUTO 1 % (0-2); EOSINOPHILS ABSOLUTE AUTO 0.23 K/mm3 (0.00-0.68); EOSINOPHILS PERCENT AUTO 3 % (0-6); Hematocrit 37.7 % (33.0-51.0); Hemoglobin 12.5 g/dL (11.5-16.0); IMMATURE GRAN ABSOLUTE AUTO 0.05 K/mm3 (0.00-0.10); IMMATURE GRAN PERCENT AUTO 1 % (0-1); LYMPHOCYTES ABSOLUTE AUTO 1.53 K/mm3 (0.84-5.20); LYMPHOCYTES PERCENT AUTO 18 % (21-46); MONOCYTES ABSOLUTE AUTO 0.61 K/mm3 (0.16-1.47); MONOCYTES PERCENT AUTO 7 % (4-13); Mean Corpuscular HGB Conc 33.2 g/dL (31.5-36.5); Mean Corpuscular Volume 94 fL (80-100); NEUTROPHILS ABSOLUTE AUTO 5.85 K/mm3 (1.96-9.15); NEUTROPHILS PERCENT AUTO 70 % (41-73); Platelet Count 176 K/mm3 (150-400); RDW Coefficient Variation 12.7 % (11.7-14.2); RDW Standard Deviation 43.2 fL (35.1-46.3); Red Blood Cell Count 4.03 M/mm3 (3.80-5.20); White Blood Cell Count 8.34 K/mm3 (4.00-11.30)
[2024-06-19 05:50] LABS: Bun/Creatinine Ratio 20.2 (12.0-20.0); Calcium, Blood 8.9 mg/dL (8.5-10.1); Creatinine, Blood 0.64 mg/dL (0.40-1.00); Potassium, Blood 3.8 mmol/L (3.5-5.5)
[2024-06-19 07:17] VITALS: BP 131/67
[2024-06-19] MEDS ORDERED: Lisinopril 20 MG Tab PO SCH (09:00)
[2024-06-19] MEDS ORDERED: LISI20 PO (12:00)
[2024-06-19] MEDS ORDERED: ATOR40TA PO (12:00)
[2024-06-19] MEDS ORDERED: CLOP75 PO (12:00)
[2024-06-19 12:08] LABS: Influenza A, PCR NEGATIVE (NEGATIVE); Influenza B, PCR NEGATIVE (NEGATIVE); Resp Syncytial Virus, PCR NEGATIVE (NEGATIVE); SARS-Cov-2 (COVID-19) PCR, MMC NEGATIVE (NEGATIVE)
--- NOTE | 2024-06-19 16:48 | NUR ---
DISCHARGE 13:30: THANG WAS DISCHARGED TO [facility], DRIVEN BY [facility] NON-EMERGENCY IN CARE OF DARREN. THANG WAS A 2 PERSON TRANSFER TO THE WHEEL CHAIR WITH ALL PERSONAL BELONGINGS RETURNED. TELE REMOVED, IV REMOVED. REMI WAS IN THE ROOM DURING THE DISCHARGE TEACHING PROCESS, AND ACCOMPANIED DARREN AND THANG OUT OF THE HOSPITAL. THIS RN CALLED TO SPEAK WITH [facility] NURSE TO GIVE REPORT, BUT HAD TO LEAVE A VOICEMAIL. DISCHARGE PACKET GIVEN TO DARREN. 16:40: THIS RN CALLED [facility] TO GIVE REPORT TO NURSE, AND WAS UPDATED BY [facility] NURSE RAUL THAT SHE HAD ALREADY RECEIVED REPORT FROM NANDA Deng CHARGE NURSE AT [facility].
--- NOTE | 2024-06-19 16:52 | NUR ---
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 SHE HAS INTERMITTENT CONFUSION THAT REMI REPORTS WAS PRESENT BEFORE THE CVA. PT REPORTS OF A HEADACHE. SHE IS ALERT TO SELF, SITUATION, BUT NOT TO TIME. SHE SAYS "YES" TO WHAT THE RN IS SAYING, BUT BECOMES FRUSTRATED WHEN SHE DOESN'T UNDERSTAND ABOUT ARRANGING TRANSPORT TO F/U WITH FIGHT MANAGER AFTER DISCHARGE. ROOM AIR. TELE REPORT IS NSR 74. SPEECH IS SLOW, BUT A BIT SLURRED. REMI IS AT THE BEDSIDE.
== END 2024-06-19 13:44 | DRG 65 ==
LOC: ER 10:26 → PCU 15:39 → MEDS 06-16 15:08
PROVIDERS: Emergency Medicine; Family Medicine; ADMIT Internal Medicine
DX: I63.9 Cerebral infarction, unspecified (principal); G45.9 Transient cerebral ischemic attack, unspecified; G81.91 Hemiplegia, unspecified affecting right dominant side; I42.2 Other hypertrophic cardiomyopathy; I50.32 Chronic diastolic (congestive) heart failure; R47.9 Unspecified speech disturbances; K21.9 Gastro-esophageal reflux disease without esophagitis; E78.5 Hyperlipidemia, unspecified; I11.0 Hypertensive heart disease with heart failure; R47.01 Aphasia; J45.909 Unspecified asthma, uncomplicated; Z96.652 Presence of left artificial knee joint; Z98.890 Other specified postprocedural states; Z88.8 Allergy status to other drugs, medicaments and biological substances; Z79.4 Long term (current) use of insulin; Z79.82 Long term (current) use of aspirin; Z79.899 Other long term (current) drug therapy; Z86.711 Personal history of pulmonary embolism; Z85.3 Personal history of malignant neoplasm of breast; M19.90 Unspecified osteoarthritis, unspecified site; G47.30 Sleep apnea, unspecified; E11.69 Type 2 diabetes mellitus with other specified complication; E11.49 Type 2 diabetes mellitus with other diabetic neurological complication
CPT/HCPCS: 0241U; 36415; 70450; 70496; 70498; 70551; 73502; 73562-RT; 80048; 80053; 80061; 81001; 82947; 83036; 83735; 84100; 84484; 85025; 87077; 87086; 87186; 92523; 92526; 92610; 93005; 93010; 93306; 97110; 97110-CQ; 97112; 97116; 97116-CQ; 97162; 97166; 97535; 99285-25; A9270; J1650; J7120; Q9967

== ENCOUNTER 2024-10-06 08:34 | Observation (INO) | payer MEDICARE, OTHER ==
[~2024-10-06] VITALS: Ht 172.7 cm; Wt 80.4 kg
[~2024-10-06 08:34] MED LIST changes: +CLOP75 PO; +LISI20 PO
[2024-10-06 10:01] LABS: BASOPHILS ABSOLUTE AUTO 0.07 K/mm3 (0.00-0.23); BASOPHILS PERCENT AUTO 1 % (0-2); EOSINOPHILS ABSOLUTE AUTO 0.24 K/mm3 (0.00-0.68); EOSINOPHILS PERCENT AUTO 2 % (0-6); Hematocrit 44.1 % (33.0-51.0); Hemoglobin 14.7 g/dL (11.5-16.0); IMMATURE GRAN ABSOLUTE AUTO 0.05 K/mm3 (0.00-0.10); IMMATURE GRAN PERCENT AUTO 1 % (0-1); LYMPHOCYTES ABSOLUTE AUTO 1.85 K/mm3 (0.84-5.20); LYMPHOCYTES PERCENT AUTO 18 % (21-46); MONOCYTES ABSOLUTE AUTO 0.54 K/mm3 (0.16-1.47); MONOCYTES PERCENT AUTO 5 % (4-13); Mean Corpuscular HGB 31.3 pg (26.0-34.0); Mean Corpuscular HGB Conc 33.3 g/dL (31.5-36.5); Mean Corpuscular Volume 94 fL (80-100); Mean Platelet Volume 9.6 fL (9.1-12.4); NEUTROPHILS ABSOLUTE AUTO 7.71 K/mm3 (1.96-9.15); NEUTROPHILS PERCENT AUTO 74 % (41-73); Platelet Count 235 K/mm3 (150-400); RDW Coefficient Variation 13.2 % (11.7-14.2); RDW Standard Deviation 45.2 fL (35.1-46.3); Red Blood Cell Count 4.69 M/mm3 (3.80-5.20); White Blood Cell Count 10.46 K/mm3 (4.00-11.30)
[2024-10-06 10:17] LABS: Albumin, Blood 3.8 g/dL (3.4-5.0); Albumin/Globulin Ratio 1.1 (0.8-1.8); Bilirubin, Total 0.8 mg/dL (0.1-1.0); Calcium, Blood 9.1 mg/dL (8.5-10.1); Creatinine, Blood 0.7 mg/dL (0.40-1.00); Globulin, Blood 3.4 g/dL (2.2-4.0); Total Protein, Blood 7.2 g/dL (6.4-8.2)
[2024-10-06] MEDS ORDERED: FLU VACC TS2024-25(6MOS UP)/PF 45 MCG/0.5 ML SYRINGE IM SCH (13:55)
[2024-10-06] MEDS ORDERED: Aspirin 325 MG Tab PO ONE (13:55)
[2024-10-06] MEDS ORDERED: HydrALAZINE HCl 20 MG / ML 1ML Vial IV PRN (14:00)
[2024-10-06 15:24] LABS: Anti-Xa UFH, PHA Monitoring <0.10 IU/mL; International Normalized Ratio 0.97; Prothrombin Time Results 10.4 Sec (9.7-11.5)
--- NOTE | 2024-10-06 16:28 | NUR ---
REPORT RECIEVED FROM ER NURSE AT 4731
[2024-10-06] MEDS ORDERED: Insulin Regular 100 UNIT/ML 10ML Vial SC SCH (16:30)
[2024-10-06 16:42] VITALS: BP 154/94
[2024-10-06] MEDS ORDERED: Heparin Sodium,Porcine/0.5 NS 500 ML IV SCH (17:30)
[2024-10-06] MEDS ORDERED: Heparin Sodium 5000 Units/ML 1ML MDV IV ONE (17:30)
--- NOTE | 2024-10-06 18:21 | NUR ---
ARRIVAL TO PCU PT ARRIVED TO PCU AT 1640 VIA GURNEY AND ON RA. PRESENT AT TIME OF ARRIVAL. PT ABLE TO TRANSFER SELF FROM GURNEY TO BED ON HER OWN USING THE BED FOR STABILITY, TOLERATED WELL. PT REPORT USING WALKER AT BASELINE, JOON BROUGHT WALKER. PT A/OX3-WITH SOME CONFUSION. PT ABLE TO EXPRESS NEEDS. PT ORIENTED TO ROOM AND CALL LIGHT. LUNGS SOUNDS WERE CLEAR AND A MURMUR NOTED. STABLE BP'S AND NO SHEST PAIN/PRESSURE AT TIME OF ARRIVAL. PT INFORMED OF CURRENT PLAN OF CARE, EXPRESSED THAT HE FEELS PT IS "OVER EXAGGERATING" HE FEELS. PT UPDATED ONCURRENT LAB VALUES AND TOPONIN LEVELS PER REQUEST. HOSPITALIST TO BEDSIDE AND SIGNED PT'S POLST FORM, FORM IN THE CHART.
[2024-10-06 20:25] VITALS: BP 153/73
[2024-10-06] MEDS ORDERED: Verapamil HCL 180 MG TABCR PO SCH (21:00)
[2024-10-07] VITALS (15 sets, daily range): BP systolic 93–150; BP diastolic 46–74
[2024-10-07] MEDS ORDERED: Dose Adjust by Pharmacy XX STA (01:11)
[2024-10-07 06:42] LABS: BASOPHILS ABSOLUTE AUTO 0.07 K/mm3 (0.00-0.23); BASOPHILS PERCENT AUTO 1 % (0-2); EOSINOPHILS ABSOLUTE AUTO 0.27 K/mm3 (0.00-0.68); EOSINOPHILS PERCENT AUTO 3 % (0-6); Hematocrit 38.8 % (33.0-51.0); Hemoglobin 13.1 g/dL (11.5-16.0); IMMATURE GRAN ABSOLUTE AUTO 0.04 K/mm3 (0.00-0.10); IMMATURE GRAN PERCENT AUTO 1 % (0-1); LYMPHOCYTES ABSOLUTE AUTO 2.25 K/mm3 (0.84-5.20); LYMPHOCYTES PERCENT AUTO 26 % (21-46); MONOCYTES ABSOLUTE AUTO 0.61 K/mm3 (0.16-1.47); MONOCYTES PERCENT AUTO 7 % (4-13); Mean Corpuscular HGB 31.7 pg (26.0-34.0); Mean Corpuscular HGB Conc 33.8 g/dL (31.5-36.5); Mean Corpuscular Volume 94 fL (80-100); Mean Platelet Volume 9.8 fL (9.1-12.4); NEUTROPHILS ABSOLUTE AUTO 5.51 K/mm3 (1.96-9.15); NEUTROPHILS PERCENT AUTO 63 % (41-73); Platelet Count 203 K/mm3 (150-400); RDW Coefficient Variation 13.2 % (11.7-14.2); RDW Standard Deviation 45.2 fL (35.1-46.3); Red Blood Cell Count 4.13 M/mm3 (3.80-5.20); White Blood Cell Count 8.75 K/mm3 (4.00-11.30)
--- NOTE | 2024-10-07 07:10 | NUR ---
PT STABLE THROUGHOUT THE SHIFT. NO C/O CP/SOB. PT AOX3, SBA WITH WALKER. 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 PT ABLE TO TAKE PO W/O PROBLEM. PT WAS MADE NPO AT MIDNIGHT FOR POSSIBLE PROCEDURE IN AM. PT TOLERATING HEPARIN INFUSION WELL W/O S/S BLEEDING. PT OOB WITH SBA AND WALKER TO URINATE AND GOOD OUTPUT.
[2024-10-07 07:12] LABS: Very Low Density Lipoprot Chol 32 mg/dL (6-32)
[2024-10-07 07:13] LABS: Anion Gap 11 mmol/L (3-11); Blood Urea Nitrogen 15 mg/dL (8-24); Bun/Creatinine Ratio 23.3 (12.0-20.0); CHOL/HDL RATIO 3.5; CO2, Blood 27 mmol/L (21-32); Calcium, Blood 8.6 mg/dL (8.5-10.1); Chloride, Blood 106 mmol/L (98-108); Cholesterol 159 mg/dL (50-200); Creatinine, Blood 0.64 mg/dL (0.40-1.00); Glomerular Filtration Rate 91 (60-); Glucose, Blood 151 mg/dL (70-99); HDL Cholesterol 46 mg/dL (>39); LDL/HDL RATIO 1.8; Low Density Lipoprotein Chol 81 mg/dL (0-110); Potassium, Blood 4.1 mmol/L (3.5-5.5); Sodium, Blood 140 mmol/L (136-145); Triglycerides 162 mg/dL (30-160)
[2024-10-07] MEDS ORDERED: Clopidogrel Bisulfate 75 MG Tab PO ONE (08:15)
[2024-10-07] MEDS ORDERED: Atorvastatin 40 MG Tab PO SCH (09:00)
[2024-10-07] MEDS ORDERED: Insulin Glargine-Yfgn 100 Unit/mL 3 ML SYR SC SCH (09:00)
[2024-10-07] MEDS ORDERED: Aspirin 81 MG Chew PO SCH (09:00)
[2024-10-07] MEDS ORDERED: Lisinopril 20 MG Tab PO SCH (09:00)
[2024-10-07] MEDS ORDERED: Midazolam HCl 1MG / ML 2ML Vial ONE (09:21)
[2024-10-07] MEDS ORDERED: Verapamil HCL 2.5 MG/ML 2ML Injection ONE (09:21)
[2024-10-07] MEDS ORDERED: FentaNYL Citrate 50 MCG/ML 2 ML Injection ONE (09:21)
[2024-10-07] MEDS ORDERED: NS 2,000 ML IV ONE (09:22)
[2024-10-07] MEDS ORDERED: NS 250 ML IV ONE (09:22)
[2024-10-07] MEDS ORDERED: Heparin Sodium 1000 Units/ML 10ML MDV ONE (09:22)
[2024-10-07] MEDS ORDERED: Nitroglycerin 2 MG/20 ML BTL ONE (09:22)
--- NOTE | 2024-10-07 09:28 | NUR ---
UPDATE PT SEEN BY GUIDANCE CONSULTANT THIS MORNING, CONSENT FORFOR BLOOD AND ANGIO SIGNED BY PTMORALES PRESENT. EP GTT STOPPED AT 0845, PHARMACY NOIFIED. PT DOWN FOR PROCEDURE TIME OF HEP GTT BEING STOPPED.
--- NOTE | 2024-10-07 09:52 | NUR ---
PT ARRIVED FROM STRAIGHT LINE EDGER AT 0945. TR ABND TO RIGHT RADIAL SIT WITHOUT BLEEDING, HEMATOMA, OR TENDERNESS NOTED. LITTLE BRUISE BENEATH TR BAND FROM PREVIOUS IV SITE. PT FINGERS DUSKY AT TIME OF ARRIVAL, STRAIGHT LINE EDGER RN REMVOED 2ML FROM TR BAND THAT HAD 9ML ALREADY IN IT. VSS. PT EDUCATED ON FREQUENT VITALS AND MONITORING OF RADIAL SITE.
[2024-10-07] MEDS ORDERED: NS 500 ML IV ONE (12:05)
--- NOTE | 2024-10-07 17:11 | NUR ---
DISCUSSED POLST WITH PATIENT AND SPOUSE. COMPLEATED NEW POLST REFLECTING DNR AND LIMITED INTERVENTIONS. PROVIDER SIGNED.
--- NOTE | 2024-10-07 17:56 | NUR ---
DISCHARGE UPDATE DISCHARGE DONTRELLKET GONE OVER WITH PT AND PT AT 1700. PT DISHCARGED AT 1720 VIA HER HERSONAL WHALKER. ARM BOARD IN PLACE AND RIGHT RADIAL SIT C/D/I. PT EDUCATED ON RADILA SITE CARE. DISCHARGE PACKET AND PERSONAL BELONGINGS WITH PT AT TIME OF DISCHARGE. POLST SIGNED BY PT AND COPY MADE, ORIGINAL WITH TIMMY.
== END 2024-10-07 18:09 | disposition home or self-care (01) ==
LOC: ER 08:34 → ERHOLD 13:54 → PCU 13:54
PROVIDERS: Emergency Medicine; ADMIT Family Medicine
DX: I21.4 Non-ST elevation (NSTEMI) myocardial infarction (principal); I35.0 Nonrheumatic aortic (valve) stenosis; I44.7 Left bundle-branch block, unspecified; I42.2 Other hypertrophic cardiomyopathy; I11.0 Hypertensive heart disease with heart failure; I50.22 Chronic systolic (congestive) heart failure; E11.9 Type 2 diabetes mellitus without complications; J45.909 Unspecified asthma, uncomplicated; Z66 Do not resuscitate; Z79.4 Long term (current) use of insulin; Z79.82 Long term (current) use of aspirin; Z79.02 Long term (current) use of antithrombotics/antiplatelets; Z79.899 Other long term (current) drug therapy; Z88.8 Allergy status to other drugs, medicaments and biological substances; Z86.711 Personal history of pulmonary embolism; Z85.3 Personal history of malignant neoplasm of breast; Z86.73 Personal history of transient ischemic attack (TIA), and cerebral infarction without residual deficits
CPT/HCPCS: 36415; 71046; 76937; 80048; 80053; 80061; 82947; 83690; 84484; 85025; 85379; 85520; 85610; 85730; 93005; 93010; 93308; 93321; 93454; 99152; 99285-25; A9270; C1769; C1887; C1894; G0378; J1644; J1815; J2250; J3010; J7030; J7040; J7050; Q9967